=== PATIENT | male | born 1960 | race Caucasian/White ===

== ENCOUNTER 2023-08-28 17:49 | Emergency (ER) | payer BC, SELFPAY ==
[2023-08-28 17:58] VITALS: BP 176/100; PULSE 94; RESP 20; TEMP 36.6; O2SAT 96; BMI 29.2
--- NOTE | 2023-08-28 18:08 | CT_ITS ---
PROCEDURE INFORMATION: Exam: CT Abdomen And Pelvis Without Contrast Exam date and time: 08/28/2023 6:42 PM Age: 63 years old Clinical indication: Other: Hematuria; Abdominal pain; Additional info: Llq pain, hematuria, history of stones TECHNIQUE: Imaging protocol: Computed tomography of the abdomen and pelvis without contrast. Radiation optimization: All CT scans at this facility use at least one of these dose optimization techniques: automated exposure control; mA and/or kV adjustment per patient size (includes targeted exams where dose is matched to clinical indication); or iterative reconstruction. COMPARISON: No relevant prior studies available. FINDINGS: Limitations: Evaluation of visceral organs and vasculature and sensitivity for lymphadenopathy are limited in the absence of intravenous contrast. Lungs: Included lung bases demonstrate no consolidation. Mild subsegmental atelectasis. Heart: Heart size is normal. No pericardial effusion. Mild aortic valve calcification. Coronary arteries: Multi-vessel coronary artery calcifications. Esophagus: Mild non-specific lower esophageal wall thickening. Liver: Liver is mildly enlarged measuring 20 cm measured over the right hepatic lobe on coronal view. Hypodense 9 mm lesion in the dome of the liver, likely a cyst or hemangioma. Gallbladder and bile ducts: Status post cholecystectomy. Pancreas: Pancreas is normal. No ductal dilatation. Spleen: Spleen is normal. Adrenal glands: No adrenal mass. Kidneys and ureters: Right renal 1.5 cm hypodense lesion, likely a cyst. No follow-up imaging indicated. Left 2-3 mm non-obstructing renal stone. No hydronephrosis or hydroureter. Stomach and bowel: No bowel obstruction or evidence of acute bowel abnormality. Postsurgical changes at the rectosigmoid junction. Mild colonic diverticulosis without evidence of diverticulitis. [id number] stool burden within the colon. Appendix: No evidence of appendicitis. Intraperitoneal space: No free air. No significant fluid collection. Vasculature: Calcified aortoiliac atherosclerotic disease. No AAA. Infrarenal abdominal aorta is ectatic measuring 2.6 cm in diameter. Lymph nodes: No enlarged lymph nodes. Urinary bladder: Urinary bladder is unremarkable for degree of distention. Reproductive: Nonenlarged prostate with nonspecific calcifications. Bones/joints: No acute abnormality. Multilevel degenerative changes of the included spine and postsurgical changes of the lumbar spine. Posterior spinal fusion with bilateral rods and pedicle screws at L2-L3 and right-sided chino and pedicle screws at L5-S1. Prominent posterior disc osteophyte complex at L1-L2 which appears to at least moderately narrow the spinal canal at this level. Soft tissues: Postsurgical changes along the right anterior abdominal wall. Small fat containing umbilical hernia. Small bilateral fat containing inguinal hernias. Calcifications in the gluteal soft tissues, likely injection granulomas. IMPRESSION: 1. Left 2-3 mm non-obstructing renal stone. No hydronephrosis or hydroureter. 2. Mild colonic diverticulosis without evidence of diverticulitis. Taprznuj-cx-jvfns stool burden within the colon. Mild lower esophageal wall thickening, nonspecific, could be secondary to degree of distension or esophagitis, correlate clinically. 3. Mildly enlarged liver. 4. Calcified aortoiliac atherosclerotic disease. Infrarenal abdominal aorta is ectatic measuring 2.6 cm in diameter. Multi-vessel coronary artery calcifications. Mild aortic valve calcifications which may indicate aortic stenosis and can be correlated with echocardiogram as clinically indicated. 5. Additional chronic and incidental findings as above. COMMENTS: Consistent with the [employer]'s Incidental Findings Committee white paper (J Am Jaki Radiol 2018): Any incidental renal lesion less than 1 cm or classified as too small to characterize, or any incidental cystic renal lesion characterized as simple-appearing, is likely benign. No follow-up imaging is recommended for these lesions per consensus recommendations based on imaging criteria.
--- NOTE | 2023-08-28 18:08 | PC.NURSE ---
PVR 16mLs
[2023-08-28 18:15] LABS: Microscopic, Urine URINE MICROSCOPIC (MICROSCOPIC)
[2023-08-28 18:18] LABS: Appearance,Urine SL CLOUDY (Clear); Blood, Urine 3+ (Negative); Color,Urine ORANGE (Yellow); Glucose,Urine (UA) Negative (Negative); Ketones,Urine Negative (Negative); Leukocyte Esterase,Urine Negative (Negative); Nitrate,Urine Negative (Negative); Protein,Urine Negative (Negative)
--- NOTE | 2023-08-28 18:34 | [facility].EDGENADL ---
Discharge Plan Disposition Patient Disposition: Home, Self-Care Condition: Good Prescriptions Prescriptions: New phenazopyridine [Pyridium] 200 mg tablet 200 mg PO Q8H PRN (Reason: pain) Qty: 20 0RF tamsulosin [Flomax] 0.4 mg capsule 0.4 mg PO DAILY Qty: 10 0RF Referrals Follow up/Referrals: Georgi Iqbal [Primary Care Provider] - See instructions Activity Restrictions/Add. Instructions Additional Instructions/Restrictions: Follow-up with your urologist within the next week. Return to the emergency department if you are unable to urinate, if pain worsens, or if you begin to have fever or vomiting with your pain. Clinical Impressions Clinical Impression: Urinary hesitancy, Hematuria Instructions Patient Instructions: DI for Urinary Retention in Men, DI for Hematuria Discharge ED Provider: Graciela Martinez General Adult HPI General Chief complaint: Urogenital-Male Stated complaint: Difficulty urinating,nausea,pain in groin Time Seen by Provider: 08/28/23 17:56 Mode of Arrival: Ambulatory Source of Information: Patient Limitations: No Limitations Description of Symptoms (Recalled from ER Triage Doc. by RN): pt to ed c/o pelvic pain/pressure that started last night dull in nature and progressed today into a sharp pain. pt states he is also having trouble urinating. pt reports he doesn't feel he is emptying his bladder. pt reports scant amount of blood in his urine. pt denies prostate hx. History of Present Illness HPI narrative: Ruel Proctor is a 63-year-old male with previous medical history of hypertension, hyperlipidemia, kidney stones, presenting with urinary hesitancy, hematuria, and left lower quadrant pain. Patient states for the past 2 days he has had progressively worsening left lower quadrant pain that is constant, worsening, associated with nausea. Today he also noticed increased effort to start and continue his urinary stream's and intermittent hematuria today. No known history of prostate problems, no bowel changes, no other concerns. Related Data Previous Rx's Medication Instructions Recorded phenazopyridine 200 mg tablet 200 mg PO Q8H PRN pain 6 doses #20 08/28/23 (Pyridium) tabs tamsulosin 0.4 mg capsule (Flomax) 0.4 mg PO DAILY #10 caps 08/28/23 Allergies Allergy/AdvReac Type Severity Reaction Status Date / Time No Known Allergies Allergy Verified 08/28/23 18:02 [facility] Disclaimer: The information contained in this section may have been updated after the patient was seen, as this information can be updated by other users. Social History Smoking Status: Current every day smoker alcohol intake: former current occupational status: other Travel in the last 8 weeks: None ROS Obtained: Yes All systems reviewed & no additional complaints except as documented Physical Exam General General appearance: alert and other (Appears to be in pain but no respiratory distress or altered mental status) Head Head exam: atraumatic, normocephalic and normal inspection Eye Eye exam: Present normal appearance, PERRL and EOMI ENT ENT exam: Present normal exam, normal oropharynx, mucous membranes moist, TM's normal bilaterally and normal external ear exam Neck Neck exam: Present normal inspection, full ROM and trachea midline; Absent meningismus or lymphadenopathy Chest Chest inspection: Present normal inspection and symmetric chest wall rise; Absent tenderness Respiratory Respiratory exam: Present normal lung sounds bilaterally; Absent respiratory distress Cardiovascular Cardiovascular exam: Present regular rate and normal rhythm; Absent JVD Abdominal Exam Abdominal exam: Present soft and normal bowel sounds; Absent distention, tenderness or guarding Extremities Exam Extremities exam: Present normal inspection, full ROM and normal capillary refill; Absent calf tenderness Back Exam Back exam: Present normal inspection; Absent tenderness Neurological Exam Neurological exam: Present alert and oriented X3 Psychiatric Psychiatric exam: Present normal affect and normal mood Skin Skin exam: Present warm, dry, intact and normal color Lymphatic Lymphatic Findings: no adenopathy Medical Decision Making Hammad Inquiry Pt receiving controlled substance: No Hammad was queried for this patient: No Vital Signs: 08/28/23 17:58 08/28/23 18:52 Temperature 97.8 F 99.4 F Temperature Source Oral Pulse Rate 84 Pulse Rate [Left Radial] 94 H Respiratory Rate 20 18 Blood Pressure 171/111 H Blood Pressure [Right Arm] 176/100 H Blood Pressure Mean [Right Arm] 125 02 Sat by Pulse Oximetry 96 99 Lab Data Lab Results 08/28/23 18:07: Urine Color Travis, Urine Appearance Sl cloudy, Urine pH 6.0, Ur Specific [place] 1.020, Urine Protein Negative, Urine Glucose (UA) Negative, Urine Ketones Negative, Urine Blood 3+, Urine Nitrate Negative, Urine Bilirubin 1+ A, Urine Urobilinogen 1.0, Ur Leukocyte Esterase Negative, Urine RBC 20-50, Urine WBC None, Ur Squamous Epith Cells None, Urine Bacteria Trace 08/28/23 18:17: WBC 10.1, RBC 5.42, Hgb 16.3, Hct 47.5, MCV 87.7, MCH 30.2, MCHC 34.4, RDW 14.0, Plt Count 175, MPV 8.6, Neut % (Auto) 62.0, Lymph % (Auto) 29.3, Wake % (Auto) 4.9, Eos % (Auto) 2.6, Baso % (Auto) 1.2, Neut # (Auto) 6.3, Lymph # (Auto) 3.0, Wake # (Auto) 0.5, Eos # (Auto) 0.3, Baso # (Auto) 0.1, Sodium 139, Potassium 3.7, Chloride 108 H, Carbon Dioxide 23, Anion Gap 11.7, BUN 18, Creatinine 0.50 L, Estimated Creat Clear 102, Estimated GFR 168, Est GFR ( Amer) 203, Glucose 98, Calcium 10.0, Total Bilirubin 0.8, AST 37, ALT 32, Alkaline Phosphatase 77, Total Protein 7.1, Albumin 4.3, Globulin 2.8, Albumin/Globulin Ratio 1.5 08/28/23 18:17 08/28/23 18:17 Orders (Tests/Meds): ED MEDICATIONS Generic Name Dose Route Start Last Admin Trade Name Freq PRN Reason Stop Dose Admin Tamsulosin HCl 0.4 mg 08/28/23 21:00 08/28/23 21:00 Tamsulosin 0.4mg Capsule PO 09/27/23 20:59 0.4 mg HS JOSE Administration Discontinued Medications Generic Name Dose Route Start Last Admin Trade Name Freq PRN Reason Stop Dose Admin Ceftriaxone Sodium 1 gm/ 50 mls @ 100 mls/hr 08/28/23 20:41 08/28/23 20:59 Sodium Chloride IV 08/28/23 21:10 100 mls/hr ONCE ONE Administration Ketorolac Tromethamine 15 mg 08/28/23 18:09 08/28/23 18:45 Ketorolac 30mg/Ml Vial IV 08/28/23 18:10 15 mg ONCE ONE Administration Morphine Sulfate 4 mg 08/28/23 18:09 08/28/23 18:46 Morphine 4mg/Ml Syringe IV 08/28/23 18:10 4 mg ONCE ONE Administration Morphine Sulfate 4 mg 08/28/23 20:41 08/28/23 21:01 Morphine 4mg/Ml Syringe IV 08/28/23 20:42 4 mg ONCE ONE Administration Ondansetron HCl 4 mg 08/28/23 18:09 08/28/23 18:46 Ondansetron 4mg/2ml Vial IV 08/28/23 18:10 4 mg ONCE ONE Administration Phenazopyridine HCl 200 mg 08/28/23 20:45 08/28/23 21:01 Phenazopyridine 200mg Tablet PO 08/28/23 20:46 200 mg ONCE ONE Administration ORDERS Category Date Time Status CT abdomen pelvis wo con Stat Cat Scan 08/28/23 18:08 Completed CBC w/Auto Diff [Complete Blood Count Auto Diff] Stat Lab 08/28/23 18:17 Completed CMP [Comprehensive Metabolic Panel] Stat Lab 08/28/23 18:17 Completed UA [Urinalysis and Microscopic] Stat Lab 08/28/23 18:07 Completed Medical Decision Narrative: Postvoid residual was 16 mL. Considered multiple causes of patient's left lower quadrant pain, urinary hesitancy, hematuria including nephrolithiasis, UTI, prostatitis or prostatic hyperplasia, malignancy, less likely diverticulitis, among others. For this reason obtained urinalysis, CBC, BMP, CT abdomen pelvis without IV contrast. Gave Toradol, Zofran, morphine for pain/nausea. Given the quality of patient's urine and his adequate postvoid residual and ability to urinate well, low suspicion for large clots obstructing his ability to urinate, so emergent urology evaluation for continuous bladder irrigation was considered but not indicated at this time. Urinalysis showed trace bacteria but no blood, negative leukocyte esterase, negative nitrites. Initially this was concerning for possible UTI given his symptoms so patient did receive ceftriaxone for possible complicated UTI however on further review given negative leukocyte esterase and negative nitrites, and based on shared decision making with patient, did not prescribe course of antibiotics as patient is very unlikely to have a true UTI. CMP and CBC were significant for no leukocytosis or JESUS. CT I independently reviewed and interpreted showed renal stones but no hydronephrosis or hydroureter, no signs of obstructing stones, and patient has diverticulosis but no diverticulitis at this time. Discussed with patient at length that he does not seem to have any emergent causes of his left lower quadrant abdominal pain, however he has had significant pain improvement with Toradol, morphine, Pyridium. For this reason discussed with patient that we will prescribe Pyridium and Flomax for his pain and hesitancy and recommend that he follow closely with a urologist as he may need a cystoscopy or other diagnostics to determine if he could have urologic malignancy, inflammatory disorders, or other causes that we cannot diagnose in the emergency department. Also provided strict return precautions. Patient understands and agrees to follow closely with a urologist. His at bedside is comfortable with plan as well. Critical Care Critical Care Time Critical Care Time: No
[2023-08-28 18:35] LABS: Bilirubin,Urine 1+ (Negative)
[2023-08-28 18:42] LABS: Bacteria,Urine Trace /lpf; RBC,Urine 20-50 #/hpf (0-3)
[2023-08-28 18:43] LABS: Basophils # 0.1 K/mm3 (0-0.2); Basophils % 1.2 % (0.1-2.0); Eosinophils # 0.3 K/mm3 (0.0-0.4); Eosinophils % 2.6 % (0.1-12.0); Hematocrit 47.5 % (42.0-52.0); Hemoglobin 16.3 g/dL (14.1-18.0); Lymphocytes % 29.3 % (10-50); Mean Corpuscular HGB Conc 34.4 g/dL (31.8-35.4); Mean Corpuscular Hemoglobin 30.2 pg (27.0-31.2); Mean Corpuscular Volume 87.7 fl (80-94); Mean Platelet Volume 8.6 fl (7.4-10.4); Monocytes # 0.5 K/mm3 (0.1-1.0); Monocytes % 4.9 % (1.7-9.3); Neutrophils # 6.3 K/mm3 (1.8-7.8); Platelet Count 175 K/mm3 (142-424); Red Blood Count 5.42 M/mm3 (4.60-6.20); White Blood Count 10.1 K/mm3 (4.8-10.8)
[2023-08-28 18:44] LABS: Chloride 108 mmol/L (98-107); Potassium 3.7 mmoL/L (3.5-5.1); Sodium 139 mmol/L (136-145)
[2023-08-28] MEDS: KETOROLAC 30MG/ML VIAL 15 MG IV (18:45)
[2023-08-28] MEDS: MORPHINE 4MG/ML SYRINGE 4 MG IV ×2 (18:46→21:01)
[2023-08-28] MEDS: ONDANSETRON 4MG/2ML VIAL 4 MG IV (18:46)
[2023-08-28 18:47] LABS: Alanine Aminotransferase 32 U/L (12-78); Albumin Level 4.3 g/dl (3.5-5.0); Albumin/Globulin Ratio 1.5 (1.1-1.8); Alkaline Phosphatase 77 U/L (38-126); Anion Gap 11.7 mEq/L (5-15); Aspartate Amino Transferase 37 U/L (17-59); Bilirubin,Total 0.8 mg/dl (0.2-1.3); Blood Urea Nitrogen 18 mg/dl (9-20); Carbon Dioxide 23 mmol/L (22.0-30.0); Creatinine Clearance Estimated 102 mL/min (50-200); Estimated Glomerular Filt Rate 168 ml/min (>60); GFR (African American) 203 ML/MIN (>60); Globulin 2.8 g/dL (1.3-3.2); Total Protein,Serum 7.1 g/dl (6.3-8.2)
[2023-08-28 18:48] LABS: Glucose 98 mg/dl (74-100)
[2023-08-28 18:52] VITALS: BP 171/111; PULSE 84; RESP 18; TEMP 37.4; O2SAT 99
--- NOTE | 2023-08-28 18:54 | PC.NURSE ---
I rounded on the pt, his pain is sharp and 7/10. pt medicated at this time. no needs voiced. call johnson in reach.
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
[2023-08-28] MEDS: CEFTRIAXONE SODIUM 1 GM in 0.9 % SODIUM CHLORIDE 50 ML IV (20:59)
[2023-08-28] MEDS: TAMSULOSIN 0.4MG CAPSULE 0.400000000000000022 MG PO (21:00)
[2023-08-28] MEDS: PHENAZOPYRIDINE 200MG TABLET 200 MG PO (21:01)
[2023-08-28 21:48] VITALS: BP 156/98; PULSE 89; RESP 19; TEMP 36.8; O2SAT 98
== END 2023-08-28 21:55 | disposition home or self-care (01) ==
PROVIDERS: Emergency Provider Emergency Medicine; PCP Family Medicine
DX: R10.32 Left lower quadrant pain (principal); R31.9 Hematuria, unspecified; R39.11 Hesitancy of micturition; N20.0 Calculus of kidney; R11.0 Nausea; I10 Essential (primary) hypertension; E78.5 Hyperlipidemia, unspecified; F17.210 Nicotine dependence, cigarettes, uncomplicated; Z87.442 Personal history of urinary calculi
CPT/HCPCS: 74176; 80053; 81001; 85025; 96365; 96375; 96376; 99285; J0696; J2405